=== PATIENT | male | born 1955 | race Caucasian/White ===

== ENCOUNTER 2018-04-29 12:26 | Inpatient (IN) | payer BC, OTHER ==
[~2018-04-29] VITALS: Ht 182.9 cm; Wt 86.2 kg
[2018-04-29] MEDS ORDERED: MIRALAX 17 GM POWD.PACK PO PRN (15:15)
[2018-04-29] MEDS ORDERED: ACETAMINOPHEN 325 MG TABLET PO PRN (15:15)
[2018-04-29] MEDS ORDERED: MAGNESIUM HYDROXIDE 30 ML LIQUID UDC PO PRN (15:15)
[2018-04-29] MEDS ORDERED: ONDANSETRON 4 MG/2 ML VIAL IM PRN (15:15)
[2018-04-29] MEDS ORDERED: LORAZEPAM 1 MG TABLET PO PRN (15:15)
[2018-04-29] MEDS ORDERED: LORAZEPAM 2 MG/1 ML VIAL IM PRN (15:15)
[2018-04-29] MEDS ORDERED: IBUPROFEN 400 MG TABLET PO PRN (15:15)
[2018-04-29] MEDS ORDERED: ONDANSETRON ODT 4 MG TAB.RAPDIS SL PRN (15:15)
[2018-04-29] MEDS ORDERED: MAG HYDROX/AL HYDROX/SIMETH 30 ML LIQUID UDC PO PRN (15:15)
[2018-04-29] MEDS ORDERED: diphenhydrAMINE 50 MG CAPSULE PO PRN (15:15)
[2018-04-29] MEDS ORDERED: LOPERAMIDE HCL 2 MG CAPSULE PO PRN (15:15)
[2018-04-29] MEDS ORDERED: INSULIN REGULAR, HUMAN 300 UNITS/3 ML VIAL SQ PRN (15:30)
[2018-04-29] MEDS ORDERED: INSULIN REGULAR, HUMAN 300 UNIT/3 ML VIAL SQ PRN (15:30)
[2018-04-29] MEDS ORDERED: DEXTROSE 50% 50 ML DISP.SYRIN IV PRN (15:30)
--- NOTE | 2018-04-29 15:45 | NUR ---
Intake assessment Patient is a 62 year old, male, seen at intake, A&Ox4, no SOB. BP 101/69, HR 140, Resp 18, O2Sat 97% room air, temp 97.7. Pt c/o left knee pain #7/10, chronic. Discussed with patient admission policies of the unit. Patient is coherent and able to respond to questions appropriately. Pt has unsteady gait. Ambulates with cane or walker. Currently inn wheelchair. Pt report left LE weakness since total hip replacement in June 2017. Pt reports that he has been drinking 18 beers (12 oz cans) a day and or 750 ml rum daily for the last 6 months. Pt report he has struggled with alcoholism for 50 years. He first started drinking at age 13. He went to an outpatient detox program in 2015. Pt poor historian and doesn't remember dates. Pt has NKA, history of withdrawal induced seizures in 1969. PMH of depression, HTN, DM type II, and s/p total hip replacement in June 2017. Pt presents as unshaved, disheveled, dirty finger nails, fine tremors. C/O anxiety #5/10, nausea, slurred speech. Denies intoxication. Pt report last drink was 04/28/2018 in the morning. Pt verbalized instructions and teachings regarding home meds, unit protocols such as taking of vital signs Q4H and handling and disposal of contraband.
[2018-04-29 16:00] VITALS: BP 101/69
[2018-04-29] MEDS ORDERED: herbal (16:17)
[2018-04-29] MEDS ORDERED: HYDR50CA5 PO (16:17)
[2018-04-29] MEDS ORDERED: TRAZ-144 PO (16:17)
[2018-04-29] MEDS ORDERED: ONDA4TAB11 PO (16:17)
[2018-04-29] MEDS ORDERED: CLON0.1T PO (16:17)
[2018-04-29] MEDS ORDERED: METH-406 PO (16:17)
[2018-04-29] MEDS ORDERED: GABA300C PO (16:17)
[2018-04-29] MEDS ORDERED: DOXE50CA4 PO (16:17)
[2018-04-29] MEDS ORDERED: INSU3INS6 SQ (16:17)
[2018-04-29] MEDS ORDERED: LISI10TA5 PO (16:17)
--- NOTE | 2018-04-29 16:30 | NUR ---
Admission Note: Pt is a 62 y/o male admitted for medically supervised withdrawal from ETOH. Pt A&O X4. Pt denies intoxication. Last drink was 2 beers yesterday on 04/28/2018. He has elevated heart rate, fine tremors, unshaved, anxious, slurred speech at times and nausea. Pt does have poor memory. Pt unshaved, disheveled, dirty fingernails. He presents with flat affect, depressed mood. Eye contact ok. Pt denies suicidal and homicidal ideations. Pt placed on 1;1 sitter for safety since he ambulates with unsteady gait. Pt current ETOH use is drinking 18 beers (12 oz cans) a day and or 750 ml rum daily for the last 6 months. Pt report he has struggled with alcoholism for 50 years. He first started drinking at age 13. He went to an outpatient detox program in 2016. Pt poor historian and doesn't remember dates. Pt is seeking treatment because he can't go on like this. He needs to get sober. Pt has previously been sober for 1 year about 5 years ago. Pt states there is no trigger, he drinks because of boredom. PMH- DM type II, HTN depression, and s/p left total hip replacement. admitting CIWA 9. Blood glucose 132. Pt has history of ETOH withdrawal seizures in 1970. Pt has NKA and is FULL CODE. Educated Pt to be open and honest. Verbalized support for patient in his recovery.
[2018-04-29] MEDS ORDERED: THIAMINE HCL 200 MG/2 ML VIAL IM ONE (16:52)
[2018-04-29 17:03] LABS: EOSINOPHILS # (AUTO) 0.2 K/uL (0.0-0.7); EOSINOPHILS % (AUTO) 4.6 % (0.0-7.0); HEMATOCRIT 40.5 % (36.7-47.1); HEMOGLOBIN 13.8 g/dL (12.5-16.3); LYMPHOCYTES # (AUTO) 1.3 K/uL (20.0-40.0); LYMPHOCYTES % (AUTO) 34.6 % (20.5-51.5); MEAN CORPUSCULAR HEMOGLOBIN 32.7 uug (23.8-33.4); MEAN CORPUSCULAR HGB CONC 34 g/dL (32.5-36.3); MEAN CORPUSCULAR VOLUME 95.9 fL (73.0-96.2); MONOCYTES # (AUTO) 0.3 K/uL (2.0-10.0); MONOCYTES % (AUTO) 8.4 % (0.0-11.0); NEUTROPHILS % (AUTO) 51.4 % (38.5-71.5); PLATELET COUNT (AUTO) 117 K/uL (152-348); RED BLOOD CELL COUNT(AUTO) 4.22 MIL/uL (4.06-5.63); WHITE BLOOD COUNT (AUTO) 3.9 K/uL (3.6-10.2)
[2018-04-29] MEDS: BLOOD SUGAR DIAGNOSTIC 1 EACH STRIP VI SCH ×2 (17:08→21:39)
[2018-04-29 17:09] LABS: ALANINE AMINOTRANSFERASE 143 U/L (16-63); ALKALINE PHOSPHATASE 68 U/L (50-136); AMYLASE 28 U/L (25-115); ASPARTATE AMINOTRANSFERASE 135 U/L (15-37); BILIRUBIN,TOTAL 1.8 mg/dL (0.2-1.0); CARBON DIOXIDE 26 mmol/L (21-32); CHLORIDE 95 mmol/L (98-107); GLUCOSE 133 mg/dL (74-106); LIPASE 106 U/L (73-393); POTASSIUM 4.4 mmol/L (3.5-5.1); TOTAL PROTEIN, SERUM 8.3 g/dL (6.4-8.2); UREA NITROGEN, BLOOD 15 mg/dL (7-18)
[2018-04-29] MEDS: GABAPENTIN 300 MG CAPSULE PO SCH (17:11)
--- NOTE | 2018-04-29 19:14 | NUR ---
End of shift VSS, blood glucose 132, appetite good. Pt remains on 1;1 for safety. no changes since admission. Safety measures in place. Bed low locked position, side rails up X2, padded. Will continue to closely monitor patient for withdrawals and endorse to PM shift.
[2018-04-29 19:16] LABS: ETHANOL < 3 MG/DL (0-0)
[2018-04-29 20:00] VITALS: BP 102/68
--- NOTE | 2018-04-29 20:00 | NUR ---
START OF SHIFT NOTE RECEIVED REPORT FROM DAY SHIFT NURSE. PATIENT IS A 62 YEAR OLD MALE NEWLY ADMITTED FOR ETOH WITHDRAWAL. PATIENT WAS PLACED ON ATIVAN TAPER. PATIENT WITH HISTORY OF DM , LAST BLOOD SUGAR IS 132. ON REGULAR INSULIN AND LANTUS. PATIENT WITH SEIZURE HISTORY , LAST ONE WAS IN 1969. PATIENT IS ON 1:1 FOR SAFETY DUE TO UNSTEADY GAIT. PATIENT WITH FLAT AFFECT MOOD, DEPRESSED MOOD, UNSHAVEN, DISHEVELED, ANXIOUS, RESTLESS ,SWEATING , HEADACHE , BILATERAL HAND TREMOR, ABDOMINAL CRAMPING AND BACK PAIN. SAFETY MEASURES IN PLACE. CALL LIGHT IN REACH. WILL CONTINUE TO MONITOR.
[2018-04-29 21:14] LABS: *AMPHETAMINE, URINE NEGATIVE (NEGATIVE); *BARBITURATE, URINE NEGATIVE (NEGATIVE); *CANNABINOID, URINE POSITIVE (NEGATIVE); *COCCAINE, URINE NEGATIVE (NEGATIVE); *OPIATE, URINE NEGATIVE (NEGATIVE); *PHENCYCLIDINE SCREEN,URINE NEGATIVE (NEGATIVE)
[2018-04-29] MEDS: LORAZEPAM 1 MG TABLET PO PRN (21:38)
[2018-04-29] MEDS: DICYCLOMINE HCL 20 MG TABLET PO PRN (21:38)
--- NOTE | 2018-04-29 21:38 | NUR ---
PRN ATIVAN, BENTYL AND MOTRIN ADMINISTRATION PATIENT ANXIOUS, FACE FLUSHED, RESTLESS ,SWEATING , HEADACHE , BILATERAL HAND TREMOR, ABDOMINAL CRAMPING AND BACK PAIN. CIWA 16. WILL MONITOR FOR EFFECTIVENESS
--- NOTE | 2018-04-29 22:38 | NUR ---
PRN ATIVAN, BENTYL AND MOTRIN RE-ASSESSMENT PATIENT IN BED, SLEEPING COMFORTABLY. NO FACE GRIMACING NOTED. RESPIRATION EVEN AND UNLABORED. CIWA DEFERRED WILL CONTINUE TO MONITOR.
[2018-04-30] VITALS: BP 121/74
--- NOTE | 2018-04-30 | NUR ---
CIWA DEFERRED PATIENT IN BED WITH EYES CLOSED. RESPIRATION EVEN AND UNLABORED. WILL CONTINUE TO MONITOR
[2018-04-30 04:00] VITALS: BP 100/73
--- NOTE | 2018-04-30 04:00 | NUR ---
CIWA DEFERRED PATIENT IN BED WITH EYES CLOSED. RESPIRATION EVEN AND UNLABORED. WILL CONTINUE TO MONITOR
--- NOTE | 2018-04-30 07:13 | NUR ---
END OF SHIFT NOTE PATIENT SLEPT 9 HOURS . FLUID INTAKE 500 ML. VOIDED X 1 . BM X 1 .MONITORED THROUGHOUT SHIFT. PATIENT WAS PLACED ON ATIVAN TAPER FOR ETOH WITHDRAWAL. PATIENT WITH HISTORY OF DM , LAST BLOOD SUGAR IS 146, PATIENT WAS GIVEN 2 UNITS OF REGULAR INSULIN . PATIENT CONTINUE ON 1:1 FOR SAFETY DUE TO UNSTEADY GAIT. PATIENT WITH FLAT AFFECT MOOD, DEPRESSED MOOD, UNSHAVEN, DISHEVELED, ANXIOUS, RESTLESS ,SWEATING , HEADACHE , BILATERAL HAND TREMOR, ABDOMINAL CRAMPING AND BACK PAIN. PATIENT WAS GIVEN PRN ATIVAN FOR CIWA 16 , PRN MOTRIN AND BENTYL. PATIENT WITH ELEVATED HEART RATE, PATIENT DENIES CHEST PAIN , ALERT AND ORIENTED X 4. ENDORSED TO NEXT SHIFT. SAFETY MEASURES IN PLACE. CALL LIGHT IN REACH. WILL CONTINUE TO MONITOR. LAST CIWA 16.
--- NOTE | 2018-04-30 07:46 | NUR ---
Start of shift Pt is a 62 y/o male admitted for medically supervised withdrawal from ETOH. Pt on 5 day Ativan taper. Pt A&O X4. He has elevated heart rate, fine tremors, unshaved, anxious and nausea. Pt unshaved, disheveled, dirty fingernails. He presents with flat affect, depressed mood. Pt placed on 1:1 sitter for safety since he ambulates with unsteady gait. Last CIWA 16. Pt has history of ETOH withdrawal seizures in 1969. Pt has NKA and is FULL CODE. Pt had uneventful night, slept 9 hours. Bed lowest position, locked, side rails up X2,, call light with in reach. All safety measures in place. Will continue to monitor for withdrawals.
[2018-04-30 08:00] VITALS: BP 124/82
[2018-04-30] MEDS: BLOOD SUGAR DIAGNOSTIC 1 EACH STRIP VI SCH ×2 (08:03→11:56)
[2018-04-30] MEDS: LORAZEPAM 1 MG TABLET PO SCH ×2 (08:42→12:01)
[2018-04-30] MEDS: GABAPENTIN 300 MG CAPSULE PO SCH ×2 (08:42→12:01)
[2018-04-30] MEDS ORDERED: 5 DAY TAPER OF LORAZEPAM -SERENITY PROTOCOL PO PRN (09:00)
[2018-04-30] MEDS ORDERED: THIAMINE HCL 100 MG TABLET PO SCH (09:00)
[2018-04-30] MEDS ORDERED: FOLIC ACID 1 MG TABLET PO SCH (09:00)
[2018-04-30] MEDS ORDERED: DOCUSATE SODIUM 250 MG CAPSULE PO SCH (09:00)
[2018-04-30] MEDS ORDERED: INSULIN GLARGINE,HUM 300 UNITS/3 ML CARTRIDGE SQ SCH (09:00)
[2018-04-30] MEDS ORDERED: MULTIVITAMINS,THERAPEUTIC TABLET PO SCH (09:00)
[2018-04-30] MEDS ORDERED: TUBERCULIN,PURIF.PROT.DERIV. 5 TU/0.1 ML TEST ID ONE (09:00)
[2018-04-30] MEDS ORDERED: TRAZODONE 50 MG TABLET PO PRN (09:45)
[2018-04-30 12:00] VITALS: BP_SYST 109; BP_SYST 96; BP_DIAS 69; BP_DIAS 81
[2018-04-30] MEDS: DICYCLOMINE HCL 20 MG TABLET PO PRN (12:02)
--- NOTE | 2018-04-30 12:05 | NUR ---
PRN BENTYL 20 MG PO FOR STOMACH CRAMPS
--- NOTE | 2018-04-30 13:05 | NUR ---
REASSESS BENTYL- PT C/O STOMACH CRAMPS, SLIGHTLY IMPROVED.
[2018-04-30 13:09] VITALS: BP 102/61
[2018-04-30] MEDS: LORAZEPAM 1 MG TABLET PO PRN (13:14)
--- NOTE | 2018-04-30 13:16 | NUR ---
PRN ATIVAN 2 MG PO FOR CIWA 18. PT C/O ANXIETY, HR 150, TREMORS AND PT UNABLE TO HOLD FORK TO EAT LUNCH R/T TREMORS.
--- NOTE | 2018-04-30 13:20 | NUR ---
NOTIFIED HR 150. ORDERED EKG. ALSO NOTIFIED CIWA 18, WILL RE-EVALUATE CIWA AGAIN IN 1 HOUR.
--- NOTE | 2018-04-30 13:50 | NUR ---
Per MD to Transfer client to ER to r/o Acute SD. Client's P 150, spO2 @ 98% on RA. Client is a/o x 4, he denies any chest pain. Client is transported via bed, sitter by side. Endorse appropriate information to ER staff Era Potts RN.
[2018-04-30] MEDS ORDERED: LORA2TAB PO ×2 (16:43)
[2018-04-30] MEDS ORDERED: HYDR25CA PO (16:43)
[2018-04-30] MEDS ORDERED: FOLI1TAB16 PO (16:43)
[2018-04-30] MEDS ORDERED: IBUP-1953 PO (16:43)
[2018-04-30] MEDS ORDERED: LORA2DIS4 IM (16:43)
[2018-04-30] MEDS ORDERED: LORA1TAB PO ×3 (16:43)
[2018-04-30] MEDS ORDERED: BLOO-140 IN (16:43)
[2018-04-30] MEDS ORDERED: MULT1TAB73 PO (16:43)
[2018-04-30] MEDS ORDERED: THIA100T13 PO (16:43)
[2018-04-30] MEDS ORDERED: DOXEPIN 50 MG CAPSULE PO SCH (21:00)
[2018-05-01] MEDS ORDERED: LORAZEPAM 1 MG TABLET PO SCH (09:00)
[2018-05-01 12:07] LABS: HEPATITIS B SURFACE AG Negative (Negative)
[2018-05-01] MEDS ORDERED: IMMU40VI IJ (17:02)
[2018-05-02] MEDS ORDERED: LORAZEPAM 1 MG TABLET PO SCH (09:00)
[2018-05-03] MEDS ORDERED: LORAZEPAM 1 MG TABLET PO SCH (09:00)
[2018-05-04] MEDS ORDERED: LORAZEPAM 1 MG TABLET PO SCH (09:00)
== END 2018-04-30 13:45 | disposition short-term general hospital (02) | DRG 896 ==
LOC: SRC 14:35
PROVIDERS: ADMIT Internal Medicine; ATTEND Internal Medicine
PROC: HZ2ZZZZ Detoxification Services for Substance Abuse Treatment (ICD-10-PCS; principal; 2018-04-29)
DX: F10.239 Alcohol dependence with withdrawal, unspecified (principal); I21.3 ST elevation (STEMI) myocardial infarction of unspecified site; I48.92 Unspecified atrial flutter; M12.562 Traumatic arthropathy, left knee; F17.210 Nicotine dependence, cigarettes, uncomplicated; Y90.9 Presence of alcohol in blood, level not specified; Z79.4 Long term (current) use of insulin; T14.90XS Injury, unspecified, sequela; I10 Essential (primary) hypertension; E11.9 Type 2 diabetes mellitus without complications
CPT/HCPCS: 36415; 80307; 80349; 83690; 83735; 85025; 86580; 86592; 86705; 86803; 87340; 87806; 93005; A4663; G0480; J1815; J3411